=== PATIENT | female | born 1995 | race Caucasian/White ===

== ENCOUNTER 2018-05-01 15:17 | Emergency (ER) | payer MEDICAID ==
[~2018-05-01] VITALS: Ht 170.2 cm; Wt 72.6 kg
[2018-05-01 15:27] VITALS: Ht 170.2 cm; Wt 72.6 kg
[2018-05-01 16:16] VITALS: BP 122/82
== END 2018-05-01 16:16 | disposition home or self-care (01) ==
LOC: ED 15:17
DX: L03.115 Cellulitis of right lower limb (principal)
CPT/HCPCS: J0696; J2001